=== PATIENT | male | born 1950 | race Caucasian/White ===

== ENCOUNTER 2023-07-31 09:49 | Emergency (ER) | payer MEDICARE ==
[2023-07-31] MEDS ORDERED: Nitroglycerin 2% Ointment 1 INCH/1 GM Packet ONE (10:28)
[2023-07-31] MEDS ORDERED: Aspirin Chewable 81 MG TAB ONE (10:28)
[2023-07-31 10:34] LABS: #Eosinphils 0.3 10x3/uL (0.0-0.5); #Monocytes 1.1 10x3/uL (0.0-1.1); %Basophils 0.3 % (0.0-2.0); %Eosinophils 2.5 % (0.0-6.0); %Lymphocytes 18.1 % (18.0-47.0); %Monocytes 10.4 % (0.0-10.0); %Neutrophils 68.2 % (40.0-75.0); Hematocrit 44.3 % (38.8-50.0); Hemoglobin 15.3 g/dL (13.5-17.5); Mean Corpuscular HGB CONC 34.5 g/dL (32.0-36.0); Mean Corpuscular Hemoglobin 31.4 pg (27.0-33.0); Mean Corpuscular Volume 90.8 fl (81.2-95.1); Mean Platelet Volume 8.5 fl (7.4-10.4); Platelet Count 221 10x3/uL (150-450); RBC Distribution Width 12.9 % (11.5-14.5); Red Blood Cell (RBC) Count 4.88 10x6/uL (4.32-5.72); White Blood Cell (WBC) Count 10.3 10x3/uL (3.5-10.5)
[2023-07-31 10:51] LABS: Troponin I Less than 0.010 ng/mL (< 0.028)
[2023-07-31 11:26] LABS: AST (SGOT) 27 U/L (5-34); Albumin 4.3 g/dL (3.4-4.8); Anion Gap 16 mmol/L (10-20); BUN (Urea Nitrogen) 12 mg/dL (8.4-25.7); Bilirubin, Total 0.8 mg/dL (0.2-1.2); Calc. Creatinine Clearance 0 mL/min (70-130); Calcium 9.7 mg/dL (7.8-10.44); Carbon Dioxide 22 mmol/L (23-31); Chloride 105 mmol/L (98-107); Estimated GFR 90; Globulin 2.9 g/dL (2.4-3.5); Glucose 82 mg/dL (83-110); Potassium 4.4 mmol/L (3.5-5.1); Protein, Total 7.2 g/dL (5.8-8.1); Sodium 139 mmol/L (136-145)
[2023-07-31 11:43] LABS: ALT (SGPT) 30 U/L (8-55); Alkaline Phosphatase 97 U/L (40-110)
[2023-07-31] MEDS ORDERED: Iopamidol 370 76% 100 ML VIAL ONE (14:22)
== END 2023-07-31 13:11 | disposition home or self-care (01) ==
LOC: CSHERS 09:49
DX: R07.9 Chest pain, unspecified (principal); I10 Essential (primary) hypertension
CPT/HCPCS: 71275; 80053; 83880; 84484; 85025; 93005; Q9967